=== PATIENT | male | born 1985 | race Caucasian/White ===

== ENCOUNTER 2021-01-05 05:40 | Day surgery (SDC) | payer OTHER ==
[~2021-01-05] VITALS: Ht 170.2 cm; Wt 66.0 kg
--- NOTE | ~2021-01-05 | OR ---
[facility] [address], [place] [address] Draft DATE OF OPERATION: 01/05/2021 SURGEON: Leighton Resendiz MD PREOPERATIVE DIAGNOSIS: 1. Pansinusitis. 2. Polyps. 3. Deviated nasal septum. 4. Chronic sinusitis. 5. Nasal obstruction. 6. Anosmia. POSTOPERATIVE DIAGNOSES: 1. Pansinusitis. 2. Polyps. 3. Deviated nasal septum. 4. Chronic sinusitis. 5. Nasal obstruction. 6. Anosmia. PROCEDURES: 1. Bilateral endoscopic frontal ethmoidectomy, 46841-82. 2. Nasal septoplasty, 70369. 3. Bilateral endoscopic sphenoidotomies, 79589-57. 4. Bilateral maxillary antrostomy, endoscopic, 60728-70. INDICATIONS: This 35-year-old gentleman has had progressive history of nasal obstruction, chronic drainage down the postnasal drainage, and progressive anosmia. He also has hypogeusia and finally came to be evaluated. His main airway he depended on was left side and that was septum was deviated too. The anterior rhinoscopy demonstrated polyps in the middle meatus. The CT scan showed a picture of pansinusitis with the left maxillary sinus totally opacified the right maxillary sinus half filled with a tissue or polyps in the floor of both frontal sinuses and the sphenoid sinus. The ethmoids had a number of air cells oliva out from polyps. The patient has tried intranasal steroid spray for years, it has been ineffective and a questionable history of nasal trauma obvious deviation of the septum and also the nasal tip deviated to the right. Because of medical failure to improve his medical condition, the above procedures were indicated. PROCEDURE IN DETAIL: PATIENT NAME: MEL GREGORIO OPERATIVE REPORT DATE OF : 87 REPORT #: [id number] PHYSICIAN: LEIGHTON RESENDIZ MD PCP: NO PRIMARY CARE PHYSICIAN REPORT IS CONFIDENTIAL AND NOT TO BE RELEASED WITHOUT AUTHORIZATION [facility] [address], [place] [address] Draft The patient was placed in the supine position, had an orotracheal intubation placed under general anesthesia. Endoscopic photographs were taken preop, intraop, and postoperatively. Beginning with the right side of the patient, a very large obstructing adeola bullosa with polyps within its interior. This was injected as well as the uncinate process with a 1.5 mL of 1% lidocaine and 1:100,000 epinephrine. A sickle knife was used to incise and swanson the adeola bullosa, then punch scissors were used to resect the lateral 180 degrees of the adeola bullosa. Microdebrider was used to help remove polypoid tissue from off the turbinate and also in the middle meatus. A backbiter was used to remove the uncinate process and the fontanelle of the maxillary sinus. A Thru-Cut ethmoid punch was used to remove the posterior fontanelle and some polyps were removed out of the maxillary sinus, but entrapped mucus was aspirated out of it and a wide maxillary antrostomy performed. A complete ethmoidectomy was done beginning with the anterior ethmoids removing polyps in the inner sinus septations going through the posterior lamina of the middle turbinate and the posterior ethmoids and then a trans-ostial sphenoidotomy was performed taking down with a Kerrison forceps to the rostrum of the sphenoid bone. Once the ceiling could be identified at the sphenoid sinus, this plane of dissection was used anteriorly, switching to a 70-degree scope, dissecting the base of skull and going up into the frontal recess. Polyps were removed there with a Thru-Cut ethmoid punch with the microdebrider and the Kerrison frontal sinus punch widely opened up the frontal sinus. Then, a piece of nasal pore was placed into the labyrinth with some nasal pore to help prevent adhesion bands. The septum was then repaired, injecting with a couple of mL of lidocaine and 4 mL of 0.5% Marcaine with 1:200,000 epinephrine. The flap was developed on the left side, making a smiling incision inferiorly, lifting up the mucoperiosteum and mucoperichondrium. The junction of bone and cartilage was and the deviation of the bone was cartilaginous up high, but very much bony deviation of the bony septum was uncertain whether this was caused from trauma or was congenital. The Doll scissors were used to cut this bone and Rocio forceps used to remove it and some of the inferior spur posteriorly also removed, which stuck into the right airway. The flaps were down with 4-0 gut and the anterior incision closed with 4-0 chromic. This opened up the airway and opened up the way for the endoscopic procedure on the left side. The middle turbinate was lateralized, had polyps coming out of the middle meatus totally plugging off the sinus drainage pathways. These polyps were removed with the microdebrider. A Thru-Cut ethmoid punch, a backbiter forceps used to remove the uncinate process making a wide maxillary antrostomy. The maxillary sinus was absolutely full of very thick white mucus. It was all suctioned out. Irrigated out and then a complete ethmoidectomy done just the same as the right side. Again, a trans-ostial sphenoidotomy was performed on the left side. Polyps removed from out of the anterior part of the sphenoid sinus and the ostium. Switching to a 70-degree scope, the surgery was completed, dissecting out the base of skull, opening up the frontal recess and finally the frontal sinus itself with the Kerrison forceps used to remove the beak of the frontal sinus as much as PATIENT NAME: MEL GREGORIO OPERATIVE REPORT DATE OF : 87 REPORT #: [id number] PHYSICIAN: LEIGHTON RESENDIZ MD PCP: NO PRIMARY CARE PHYSICIAN REPORT IS CONFIDENTIAL AND NOT TO BE RELEASED WITHOUT AUTHORIZATION [facility] [address], [place] [address] Draft possible. More nasal pore with mupirocin ointment placed on the left side to help prevent adhesion bands and the patient was awakened, extubated and sent to recovery room in good condition. ESTIMATED BLOOD LOSS: About 150 mL. COMPLICATIONS: There were no complications. DISPOSITION: The patient went to the recovery room in good condition. MD INDU Lora/MODL /[id number] Copies: ~ PATIENT NAME: MEL GREGORIO OPERATIVE REPORT DATE OF : 87 REPORT #: [id number] PHYSICIAN: LEIGHTON RESENDIZ MD PCP: NO PRIMARY CARE PHYSICIAN REPORT IS CONFIDENTIAL AND NOT TO BE RELEASED WITHOUT AUTHORIZATION
--- NOTE | 2021-01-05 10:19 | NUR ---
01/05/21 1019 Simone Grider RESPONDS TO VOICE AT 1010. DENIES NAUSEA OR PAIN. REORIENTED TO TIME AND SITUATION. REPORTS FRUSTRATION WITH HAVING TO MOUTH BREATHE. O2 WEANED TO ROOM AIR AT 1020.
--- NOTE | 2021-01-05 10:52 | NUR ---
PATIENT AWAKE AND BACK IN ROOM, REPORS PAIN 2/10 ON PAIN SCALE. DRINKING WATER OKAY. GAUZE PAD IN PLACE, SMALL AMOUNT OF DRAINAGE. CALL LIGTH WITHIN PLACE. NO OTHER NEEDS AT THIS TIME.
--- NOTE | 2021-01-05 11:03 | NUR ---
PATIENTS GAUZE HAD MODERATE AMOUNT OF DRAINAGE. REPLACED WITH A NEW 2X2 GAUZE.
--- NOTE | 2021-01-05 11:25 | NUR ---
PATIENTS GAUZE UNDER HIS NOSE HAS A MODERATE AMOUNT OF RED DRAINGAE. REPLACED GUAZE WITH A NEW 2X2. PATIENT STATES PAIN UNDER CONTROL AT THIS TIME.
--- NOTE | 2021-01-05 11:55 | NUR ---
PATIENT UP TO BATHROOM AND VOIDED WELL. BACK TO ROOM, CHANGED DRIP PAD. VSS, AND DRIP PAD CHANGED. REMOVED IV. PATIENT REPORTS READY TO DISCHARGE.
--- NOTE | 2021-01-05 13:02 | NUR ---
GAVE A FEW 2X2S AND TAPE TO CHANGE MUSTACHE DRESSING.
--- NOTE | 2021-01-10 13:45 | PATH ---
[facility] [address], [place] [address] Signed THIS IS AN ADDENDUM REPORT SPECIMEN(S): A BILATERAL SINUS CONTENTS SPECIMEN SOURCE: A. BILATERAL SINUS CONTENTS CLINICAL HISTORY: Endoscopic sinus surgery, septoplasty. Polyps, pansinusitis. FINAL PATHOLOGIC DIAGNOSIS: Sinus contents, bilateral, excision: - Chronic sinusitis. - Fragments of sinonasal inflammatory polyp(s). - Fragment of viable hyaline cartilage and bone. NAL:cml:C2NR MICROSCOPIC EXAMINATION: Histologic sections of all submitted blocks are examined by light microscopy. These findings, together with the gross examination, support the pathologic diagnosis. GROSS DESCRIPTION: The specimen, labeled "BG, bilateral sinus contents," is received in formalin and consists of irregular shaped, membranous, bone and cartilage tissue fragments that aggregate measure 6.0 x 4.2 x 0.9 cm. Specimen is left for decalcification in Decal Stat prior to processing. Career Orientation Teacher sections are submitted in cassette (A1). JS (under the direct supervision of a pathologist) The Gross Description was prepared using a voice recognition system. The report was reviewed for accuracy; however, sound-alike word errors, addition and/or deletions may occur. If there is any question about this report, please contact Client Services. PERFORMING LABORATORY: The technical component was performed by [facility], [address] [place] [id number] (Adobe Block Maker: Divya Andre MD; CLIA# [id number]). [facility], [address] [address] (CLIA# [id number]). PATIENT NAME: MEL GREGORIO PATHOLOGY DATE OF : 87 REPORT #: [id number] PHYSICIAN: VADIM GA PCP: NO PRIMARY CARE PHYSICIAN REPORT IS CONFIDENTIAL AND NOT TO BE RELEASED WITHOUT AUTHORIZATION [facility] [address], [place] [address] Signed REASON FOR ADDENDUM: Per provider's request determine how many eosinophils are present. ADDENDUM COMMENT: Per provider's request the tissue was re-examined to determine "how many eosinophils are present". Eosinophils are seen scattered throughout the submucosa, focally up to 120 per high-power field. NAL:cml Professional interpretation was performed by [facility], [facility], [address] [place] [address] (CLIA# [id number]). Diagnostician: Luann Angeles MD Pathologist Electronically Signed 01/10/2021 Copies: ~ PATIENT NAME: MEL GREGORIO PATHOLOGY DATE OF : 87 REPORT #: [id number] PHYSICIAN: [facility] PCP: NO PRIMARY CARE PHYSICIAN REPORT IS CONFIDENTIAL AND NOT TO BE RELEASED WITHOUT AUTHORIZATION
== END 2021-01-05 12:50 | disposition home or self-care (01) ==
LOC: OPS 05:40 → DS 05:40 → OPS 06:45 → DS 09:45 → OPS 12:50
PROVIDERS: ATTEND Otolaryngology
PROC: 09CX4ZZ Extirpation of Matter from Left Sphenoid Sinus, Percutaneous Endoscopic Approach (ICD-10-PCS; 2021-01-05)
PROC: 09CW4ZZ Extirpation of Matter from Right Sphenoid Sinus, Percutaneous Endoscopic Approach (ICD-10-PCS; 2021-01-05)
PROC: 099R4ZZ Drainage of Left Maxillary Sinus, Percutaneous Endoscopic Approach (ICD-10-PCS; 2021-01-05)
PROC: 099Q4ZZ Drainage of Right Maxillary Sinus, Percutaneous Endoscopic Approach (ICD-10-PCS; 2021-01-05)
PROC: 09BM4ZZ Excision of Nasal Septum, Percutaneous Endoscopic Approach (ICD-10-PCS; principal; 2021-01-05 06:45)
DX: J32.4 Chronic pansinusitis (principal); J33.8 Other polyp of sinus; J34.2 Deviated nasal septum; R43.0 Anosmia
CPT/HCPCS: 00160; J0131; J1100; J2405; J2704; J3010; J3475; J7121